=== PATIENT | female | born 1950 | race African-American/Black ===

== ENCOUNTER 2020-10-02 11:55 | Emergency (ER) | payer OTHER ==
[2020-10-02] MEDS ORDERED: SODIUM CHLORIDE 1,000 ML IV STA (12:01)
[2020-10-02 12:13] VITALS: BMI 28.0
[2020-10-02 12:47] LABS: BASO % 0.4 % (0-2.0); EOS % 1.8 % (0-4.5); HEMATOCRIT 29.2 % (32.4-45.2); HEMOGLOBIN 9.6 GM/dL (10.7-15.3); LYMPH % 10.6 % (8-40); MCH 32.1 pg (25.7-33.7); MCHC 32.8 g/dl (32.0-36.0); MEAN CELL VOLUME 97.6 fl (80-96); MEAN PLT VOLUME 8.3 fl (7.5-11.1); MONO % 13.5 % (3.8-10.2); NEUT % 73.7 % (42.8-82.8); PLATELET COUNT 174 K/MM3 (134-434); RDW 14.7 % (11.6-15.6); WHITE BLOOD COUNT 3.8 K/mm3 (4.0-10.0)
[2020-10-02 13:04] LABS: CHLORIDE 114 mmol/L (98-107); POTASSIUM 4.1 mmol/L (3.5-5.1); SODIUM 146 mmol/L (136-145)
[2020-10-02 13:06] LABS: CALCIUM 8.9 mg/dL (8.5-10.1)
[2020-10-02 13:07] LABS: ALBUMIN 3.8 g/dl (3.4-5.0); ANION GAP 11 MMOL/L (8-16); BLOOD UREA NITROGEN 17.6 mg/dL (7-18); CO2 21 mmol/L (21-32); GLUCOSE,RANDOM 101 mg/dL (74-106)
[2020-10-02 13:10] LABS: CREATININE 1.1 mg/dL (0.55-1.3); SGOT/AST 16 U/L (15-37); SGPT/ALT 18 U/L (13-61)
[2020-10-02 13:12] LABS: BILIRUBIN,TOTAL 0.8 mg/dL (0.2-1)
[2020-10-02 13:13] LABS: ALK PHOS 93 U/L (45-117)
[2020-10-02] MEDS ORDERED: BAMLANIVIMAB 700 MG in SODIUM CHLORIDE 180 ML IVPB ONE (13:26)
[2020-10-02 14:59] LABS: URINE APPEARANCE CLEAR; URINE BILIRUBIN NEGATIVE (NEGATIVE); URINE COLOR YELLOW; URINE GLUCOSE (UA) NEGATIVE (NEGATIVE); URINE KETONE NEGATIVE (NEGATIVE); URINE LEUK ESTERASE NEGATIVE (NEGATIVE); URINE NITRITE NEGATIVE (NEGATIVE); URINE PROTEIN TRACE (NEGATIVE); URINE UROBILINOGEN 0.2 mg/dL (0.2-1.0)
[2020-10-02 15:40] VITALS: TEMP 98.3
[2020-10-02 16:16] VITALS: BP 169/70; PULSE 79
== END 2020-10-02 16:23 | disposition home or self-care (01) ==
LOC: JER 11:55 → JCOVINFU 11:55
PROC: 3E03329 Introduction of Other Anti-infective into Peripheral Vein, Percutaneous Approach (ICD-10-PCS; principal; 2020-10-02)
PROC: 3E0337Z Introduction of Electrolytic and Water Balance Substance into Peripheral Vein, Percutaneous Approach (ICD-10-PCS; 2020-10-02)
DX: U07.1 COVID-19 (principal)
CPT/HCPCS: 36415; 71046-TC-FY; 80053; 81003; 83036; 84484; 85025; 87086; 93005; 93010; 99285-25; C9803; M0239; Q0239; U0003